=== PATIENT | female | born 1945 | race Caucasian/White ===

== ENCOUNTER 2018-10-16 12:26 | Inpatient (IN) | payer MEDICARE, OTHER ==
[~2018-10-16] VITALS: Ht 152.4 cm; Wt 68.1 kg
[2018-10-16] MEDS ORDERED: cefotetan 2gm/isosm dext IVPB 50 ML IV ONE (13:45)
[2018-10-16 14:00] VITALS: BP 136/65
[2018-10-16] MEDS ORDERED: CLON-528 PO (14:25)
[2018-10-16] MEDS ORDERED: DESV100T PO (14:25)
[2018-10-16] MEDS ORDERED: PREG225C PO (14:25)
[2018-10-16] MEDS ORDERED: QUET50TA22 PO (14:25)
[2018-10-16] MEDS ORDERED: DONE10TA7 PO (14:25)
[2018-10-16] MEDS ORDERED: QUET25TA34 PO (14:25)
[2018-10-16] MEDS ORDERED: CARB1TAB23 PO (14:25)
[2018-10-16 14:44] LABS: BASOPHILS % (AUTO) 0.6 % (0-1); EOSINOPHILS # (AUTO) 0.1 X10'3 (0-0.9); EOSINOPHILS % (AUTO) 0.9 % (0-6); LYMPHOCYTES # (AUTO) 1.9 X10'3 (1.1-4.8); LYMPHOCYTES % (AUTO) 28.7 % (21-51); MEAN CORPUSCULAR HEMOGLOBIN 30.2 PG (27.0-31.0); MEAN CORPUSCULAR HGB CONC 33.3 g/dL (33.0-36.5); MEAN CORPUSCULAR VOLUME 90.5 FL (78-98); MEAN PLATELET VOLUME 9.9 FL (7.4-10.4); MONOCYTES # (AUTO) 0.5 X10'3 (0-0.9); MONOCYTES % (AUTO) 7.2 % (2-12); NEUTROPHILS # (AUTO) 4.3 X10'3 (1.8-7.7); NEUTROPHILS % (AUTO) 62.6 % (42-75); PRE OP HEMATOCRIT 42.1 % (35.0-45.0); PRE OP PLATELET COUNT 197 X10'3 (140-440); RED BLOOD COUNT 4.65 X10'6 (4.20-5.60); RED CELL DISTRIBUTION WIDTH 13.8 % (11.5-14.5)
[2018-10-16] MEDS ORDERED: PEG 3350/Na sulf,bicarb,Cl/KCl oral sol 4 liter bottle PO ONE (14:45)
[2018-10-16 14:51] LABS: PRE OP INR 1.1 INR; PRE OP PROTIME 10.8 SECONDS (9.0-12.0)
[2018-10-16 14:53] LABS: ALBUMIN 3.4 G/DL (3.4-5.0); ALBUMIN/GLOBULIN RATIO 0.9 (1.1-1.5); ALKALINE PHOSPHATASE 61 IU/L (46-116); BLOOD UREA NITROGEN 13 MG/DL (7-18); BUN/CREATININE RATIO 15.7 (6.6-38.0); CALCIUM 8.5 MG/DL (8.5-10.1); CHLORIDE 107 MMOL/L (99-107); CREATININE 0.83 MG/DL (0.40-0.90); PRE OP ANION GAP 6 (8-16); PRE OP AST 15 U/L (10-37); PRE OP BILIRUB, TOTAL 0.5 MG/DL (0.0-1.0); PRE OP GLUCOSE 94 MG/DL (70-104); PRE OP SODIUM 141 MMOL/L (135-145); TOTAL CARBON DIOXIDE 27.9 MMOL/L (24-32); TOTAL PROTEIN 7.4 G/DL (6.4-8.2); eGFR 67 ML/MIN
[2018-10-16 14:58] LABS: PRE OP POTASSIUM 3.3 MMOL/L (3.4-5.1)
[2018-10-16] MEDS: ondansetron/PF 4mg/2ml inj IV PRN (15:00)
[2018-10-16 15:23] LABS: PRE OP ALT 3 U/L (30-65)
[2018-10-16] MEDS ORDERED: magnesium 2GM in 50ml NS 50 ML IV PRN (15:55)
[2018-10-16] MEDS ORDERED: magnesium Cl slow-release 64mg tablet PO PRN ×2 (15:55)
[2018-10-16] MEDS ORDERED: potassium Cl 20 mEq SR tablet PO PRN ×3 (15:55)
[2018-10-16] MEDS ORDERED: ondansetron/PF 4mg/2ml inj IV PRN (15:55)
[2018-10-16] MEDS ORDERED: magnesium 4gm in 100ml NS 100 ML IV PRN (15:55)
[2018-10-16] MEDS ORDERED: potassium Cl 40MEQ/NS 500ml 500 ML IV PRN ×4 (15:55)
[2018-10-16] MEDS: potassium Cl 20 mEq SR tablet PO PRN ×2 (16:24→20:47)
[2018-10-16] MEDS: normal saline 1000ml 1,000 ML IV SCH (16:25)
[2018-10-16] MEDS ORDERED: QUEtiapine 25mg tablet PO PRN (16:55)
--- NOTE | 2018-10-16 17:02 | NUR ---
Spoke to Dr Solis he stated no need to place vogel now he will place during surgery. Also, Dr Solis would like us to continue with giving patient Golytle. Dr Calixto is aware and ok with this information
[2018-10-16] MEDS: carbidoba-levodopa 25-100mg tablet PO SCH ×2 (17:09→20:50)
--- NOTE | 2018-10-16 18:43 | NUR ---
Problems reprioritized. Patient report given, questions answered & plan of care reviewed with Pat RN.
[2018-10-16 19:30] VITALS: BP 145/67
--- NOTE | 2018-10-16 19:30 | NUR ---
near completion of go-megan prep Addendum: 10/17/18 at 0217 by Bharti Olson RN Amended: Links added.
[2018-10-16] MEDS ORDERED: clonazePAM 0.5mg tablet PO SCH (20:00)
[2018-10-16] MEDS: venlafaxine 25mg tablet PO SCH (20:48)
[2018-10-16] MEDS: donepezil 5mg tablet PO SCH (20:49)
[2018-10-16] MEDS: pregabalin 75mg capsule PO SCH (20:49)
[2018-10-16] MEDS: QUEtiapine 25mg tablet PO SCH (21:00)
[2018-10-16] MEDS ORDERED: QUEtiapine 25mg tablet PO SCH ×2 (21:00)
[2018-10-16] MEDS: clonazePAM 0.5mg tablet PO PRN (21:38)
[2018-10-17] VITALS (17 sets, daily range): BP systolic 105–158; BP diastolic 53–84
[2018-10-17] MEDS: potassium Cl 20 mEq SR tablet PO PRN (00:55)
[2018-10-17 05:17] LABS: ALBUMIN 3.1 G/DL (3.4-5.0); ANION GAP 8 (8-16); BLOOD UREA NITROGEN 9 MG/DL (7-18); BUN/CREATININE RATIO 13.4 (6.6-38.0); CALCIUM 8.5 MG/DL (8.5-10.1); CHLORIDE 109 MMOL/L (99-107); CREATININE 0.67 MG/DL (0.40-0.90); GLUCOSE 86 MG/DL (70-104); MAGNESIUM 2.2 MG/DL (1.5-2.4); POTASSIUM 3.8 MMOL/L (3.5-5.1); SODIUM 143 MMOL/L (135-145); TOTAL CARBON DIOXIDE 26.3 MMOL/L (24-32); eGFR 86 ML/MIN
[2018-10-17 05:31] LABS: BASOPHILS # (AUTO) 0.1 X10'3 (0-0.2); BASOPHILS % (AUTO) 0.9 % (0-1); EOSINOPHILS # (AUTO) 0.1 X10'3 (0-0.9); EOSINOPHILS % (AUTO) 1.6 % (0-6); HEMATOCRIT 42.5 % (35.0-45.0); HEMOGLOBIN 14.1 g/dl (12.0-16.0); LYMPHOCYTES # (AUTO) 2.3 X10'3 (1.1-4.8); LYMPHOCYTES % (AUTO) 33.3 % (21-51); MEAN CORPUSCULAR HEMOGLOBIN 29.8 PG (27.0-31.0); MEAN CORPUSCULAR HGB CONC 33.2 g/dL (33.0-36.5); MEAN CORPUSCULAR VOLUME 89.9 FL (78-98); MEAN PLATELET VOLUME 11.6 FL (7.4-10.4); MONOCYTES # (AUTO) 0.5 X10'3 (0-0.9); MONOCYTES % (AUTO) 7.6 % (2-12); NEUTROPHILS # (AUTO) 3.9 X10'3 (1.8-7.7); NEUTROPHILS % (AUTO) 56.6 % (42-75); PLATELET COUNT 180 X10'3 (140-440); RED BLOOD COUNT 4.73 X10'6 (4.20-5.60); RED CELL DISTRIBUTION WIDTH 13.4 % (11.5-14.5); WHITE BLOOD COUNT 6.9 X10'3 (4.5-11.0)
[2018-10-17] MEDS ORDERED: cefotetan 2gm/isosm dext IVPB 50 ML IV ONE (06:00)
--- NOTE | 2018-10-17 06:40 | NUR ---
report given to LENA Fitzgerald
--- NOTE | 2018-10-17 06:54 | NUR ---
Patient in room [facility] 347. I have received report from Pat RN and had the opportunity to ask questions and assume patient care.
[2018-10-17] MEDS ORDERED: DESVENLAFAXINE SUCCINATE PO SCH (08:00)
[2018-10-17] MEDS: K and/or MAG REPLACEMENT MC SCH (08:00)
[2018-10-17] MEDS: venlafaxine 25mg tablet PO SCH ×2 (09:05→21:28)
[2018-10-17] MEDS: pregabalin 75mg capsule PO SCH ×2 (09:06→21:28)
[2018-10-17] MEDS: carbidoba-levodopa 25-100mg tablet PO SCH ×4 (09:06→21:00)
[2018-10-17] MEDS: normal saline 1000ml 1,000 ML IV SCH ×2 (09:07→21:25)
[2018-10-17] MEDS ORDERED: LIDOcaine 1% 30ml preserv. free vial ONE (14:46)
--- NOTE | 2018-10-17 15:48 | NUR ---
Called Report to Recovery all questions answered. They are aware of the DNR status and Dr Solis is aware stated he did not need to sign DNR form.
[2018-10-17] MEDS ORDERED: NORMAL SALINE IV SCH (16:00)
[2018-10-17] MEDS ORDERED: ADDVANTAGE IV SCH (16:00)
[2018-10-17] MEDS ORDERED: CEFOXITIN IV SCH (16:00)
[2018-10-17] MEDS ORDERED: sevoflurane 250ml liquid IH ONE (16:18)
[2018-10-17] MEDS ORDERED: neostigmine methylsulfate 1 MG/ML 10ml vial ONE (16:18)
[2018-10-17] MEDS ORDERED: dexamethasone sod phosphate 10mg/ml inj ONE (16:18)
[2018-10-17] MEDS ORDERED: glycopyrrolate 0.2mg/ml inj ONE (16:18)
[2018-10-17] MEDS ORDERED: midazolam 2 mg/2 ml injection ONE (16:22)
[2018-10-17] MEDS ORDERED: fentaNYL /PF 50mcg/ml 5ml ampule ONE (16:22)
[2018-10-17] MEDS ORDERED: LIDOcaine 2% (20mg/ml) 5ml vial ONE (16:23)
[2018-10-17] MEDS ORDERED: propofol inj 20 ML IV ONE (16:23)
[2018-10-17] MEDS ORDERED: ondansetron/PF 4mg/2ml inj ONE (16:31)
[2018-10-17] MEDS ORDERED: rocuronium 10mg/ml inj IV ONE (16:32)
[2018-10-17] MEDS: BUPIVAcaine/PF 2.5mg/ml (0.25%) 10ml vial ONE ×2 (16:57→19:30)
[2018-10-17] MEDS: ROPIVAcaine 0.5% (5mg/ml) 30ml vial ONE ×2 (16:58→19:31)
[2018-10-17] MEDS ORDERED: ringers solution, lacted 1,000 ML IV SCH (17:01)
[2018-10-17] MEDS ORDERED: proCHLORperazine 10 MG/2 ml inj IV PRN (17:05)
[2018-10-17] MEDS ORDERED: ondansetron/PF 4mg/2ml inj IV PRN (17:05)
[2018-10-17] MEDS ORDERED: meperidine/PF 25mg/ml syringe IV PRN ×3 (17:05)
[2018-10-17] MEDS ORDERED: morphine 4 MG/ML inj SYRINge IV PRN ×2 (17:05)
--- NOTE | 2018-10-17 18:39 | NUR ---
Problems reprioritized. Patient report given, questions answered & plan of care reviewed with Eva PAREDES, patient still in surgery .
[2018-10-17] MEDS ORDERED: naloxone 0.4 mg/ml inj IV PRN (19:20)
[2018-10-17] MEDS ORDERED: CADD PCA waste documentation MC PRN (19:20)
--- NOTE | 2018-10-17 19:35 | NUR ---
PReceived from OR via MEDICAL BED, accompanied by Anesthesiologist DR. MATTA and report given by Anesthesiolgist. PT RESTFUL, O2 VIA MASK AT 10L. WOUND VAC TO ABD CDI, GOOD SEAL AND SUCTION. FC NOTED WITH CLEAR YELLOW URINE. SCD IN PLACE. 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 VALDEZ WITH GOOD CSM
[2018-10-17] MEDS: HYDROmorphone/NS 1 mg/ml CADD 50 ML IV SCH ×3 (19:45→23:00)
--- NOTE | 2018-10-17 20:15 | NUR ---
Received report from recovery nurse Pat PAREDES. Will assume patient care.
--- NOTE | 2018-10-17 20:25 | NUR ---
Report called to receiving nurse VERNELL PAREDES. Transferred via SURGICAL BED TO ROOM 347B, NO Belongings BROUGHT TO THE RR. FAMILY NOTIFIED PT TAKEN TO ROOM. Special Issues communicated to receiving nurse. VSS ON 2L NC. PAIN BETTER WITH MEDICATION
--- NOTE | 2018-10-17 20:40 | NUR ---
Patient arrived to floor with family at bedside. Patient awake and states she is in a lot of pain 10/10. Patient and family educated about Dilaudid Cadd pump for pain, states understanding. Patient has a FC in place draining clear yellow urine. WV to midline at 125mmhg low continuous. No output to canister. VSS. Continue with care.
[2018-10-17] MEDS: donepezil 5mg tablet PO SCH (21:00)
[2018-10-17] MEDS: QUEtiapine 25mg tablet PO SCH (21:00)
[2018-10-17] MEDS: cefotetan 1gm/50ml IVPB 50 ML IV SCH (21:25)
--- NOTE | 2018-10-17 21:30 | NUR ---
Patient missed her 1600 Cefotetan dose. Pharmacist Adam called states ok to give the dose now and to proceed with the midnight dose.
--- NOTE | 2018-10-17 22:00 | NUR ---
All night medications held tonight. Patient states she is ok with all of it being held. BS very hypoactive. No gas yet. Patient states her pain is much better rating it 2/10. CADD pump in reach.
[2018-10-18] VITALS: BP 118/50
[2018-10-18 00:30] VITALS: BP 107/46
[2018-10-18] MEDS: HYDROmorphone/NS 1 mg/ml CADD 50 ML IV SCH ×5 (01:00→09:00)
[2018-10-18] MEDS: cefotetan 1gm/50ml IVPB 50 ML IV SCH ×3 (01:24→16:38)
[2018-10-18 04:00] VITALS: BP 119/59
[2018-10-18 05:18] LABS: BASOPHILS % (AUTO) 0.1 % (0-1); EOSINOPHILS % (AUTO) 0 % (0-6); HEMATOCRIT 37.8 % (35.0-45.0); HEMOGLOBIN 12.6 g/dl (12.0-16.0); LYMPHOCYTES # (AUTO) 1.1 X10'3 (1.1-4.8); MEAN CORPUSCULAR HEMOGLOBIN 29.7 PG (27.0-31.0); MEAN CORPUSCULAR HGB CONC 33.2 g/dL (33.0-36.5); MEAN CORPUSCULAR VOLUME 89.3 FL (78-98); MONOCYTES % (AUTO) 5.7 % (2-12); NEUTROPHILS # (AUTO) 15.7 X10'3 (1.8-7.7); NEUTROPHILS % (AUTO) 88.2 % (42-75); PLATELET COUNT 151 X10'3 (140-440); RED BLOOD COUNT 4.24 X10'6 (4.20-5.60); RED CELL DISTRIBUTION WIDTH 14.2 % (11.5-14.5); WHITE BLOOD COUNT 17.8 X10'3 (4.5-11.0)
[2018-10-18 05:30] LABS: ALBUMIN 2.7 G/DL (3.4-5.0); ANION GAP 9 (8-16); BLOOD UREA NITROGEN 9 MG/DL (7-18); BUN/CREATININE RATIO 9.3 (6.6-38.0); CALCIUM 7.9 MG/DL (8.5-10.1); CHLORIDE 106 MMOL/L (99-107); CREATININE 0.97 MG/DL (0.40-0.90); GLUCOSE 141 MG/DL (70-104); MAGNESIUM 1.8 MG/DL (1.5-2.4); POTASSIUM 4.2 MMOL/L (3.5-5.1); SODIUM 140 MMOL/L (135-145); TOTAL CARBON DIOXIDE 24.9 MMOL/L (24-32); eGFR 56 ML/MIN
[2018-10-18] MEDS ORDERED: diphenhydrAMINE 50 mg/ml inj IV PRN (06:00)
[2018-10-18 07:00] VITALS: BP 121/62
[2018-10-18 07:05] LABS: PLATELET ESTIMATE NORMAL; TOTAL CELLS COUNTED 100
[2018-10-18] MEDS: K and/or MAG REPLACEMENT MC SCH (08:00)
[2018-10-18] MEDS: pregabalin 75mg capsule PO SCH ×2 (08:01→20:46)
[2018-10-18] MEDS: venlafaxine 25mg tablet PO SCH ×2 (08:01→20:46)
[2018-10-18] MEDS: clonazePAM 0.5mg tablet PO PRN (08:01)
[2018-10-18] MEDS: carbidoba-levodopa 25-100mg tablet PO SCH ×4 (08:01→20:46)
[2018-10-18 11:00] VITALS: BP 111/61
[2018-10-18] MEDS ORDERED: morphine/NS 5 mg/ml CADD 50 ML IV SCH (11:19)
[2018-10-18] MEDS ORDERED: naloxone 0.4 mg/ml inj IV PRN (11:20)
[2018-10-18] MEDS ORDERED: diphenhydrAMINE 50 mg/ml inj IV ONE (11:25)
[2018-10-18] MEDS: CADD PCA waste documentation MC PRN (14:08)
[2018-10-18] MEDS: morphine/NS 5 mg/ml CADD 50 ML IV SCH ×6 (14:31→23:00)
[2018-10-18] MEDS: normal saline 1000ml 1,000 ML IV SCH (16:31)
[2018-10-18 18:00] VITALS: BP 128/68
--- NOTE | 2018-10-18 18:32 | NUR ---
Patient in room [facility] 347. I have received report from LENA Nelson and had the opportunity to ask questions and assume patient care.
[2018-10-18] MEDS: docusate sod 100mg capsule PO SCH (20:44)
[2018-10-18] MEDS: QUEtiapine 25mg tablet PO SCH (20:46)
[2018-10-18] MEDS: donepezil 5mg tablet PO SCH (20:47)
[2018-10-19] VITALS: BP 101/54
[2018-10-19] MEDS: cefotetan 1gm/50ml IVPB 50 ML IV SCH ×3 (00:04→17:55)
[2018-10-19] MEDS: morphine/NS 5 mg/ml CADD 50 ML IV SCH ×3 (01:00→05:00)
[2018-10-19] MEDS: ondansetron/PF 4mg/2ml inj IV PRN (04:42)
--- NOTE | 2018-10-19 06:30 | NUR ---
Problems reprioritized. Patient report given, questions answered & plan of care reviewed with LENA Nelson.
[2018-10-19 07:00] VITALS: BP 114/63
[2018-10-19] MEDS: K and/or MAG REPLACEMENT MC SCH (08:00)
[2018-10-19] MEDS: pregabalin 75mg capsule PO SCH ×2 (08:00→20:06)
[2018-10-19] MEDS ORDERED: normal saline 250ml IV soln 250 ML IV ONE ×2 (08:35→09:00)
[2018-10-19] MEDS: docusate sod 100mg capsule PO SCH ×2 (08:50→20:05)
[2018-10-19] MEDS: carbidoba-levodopa 25-100mg tablet PO SCH ×4 (08:50→20:06)
[2018-10-19] MEDS: venlafaxine 25mg tablet PO SCH ×2 (08:51→20:06)
[2018-10-19 09:16] LABS: BASOPHILS % (AUTO) 0.3 % (0-1); EOSINOPHILS % (AUTO) 0 % (0-6); HEMATOCRIT 32.9 % (35.0-45.0); HEMOGLOBIN 10.9 g/dl (12.0-16.0); LYMPHOCYTES # (AUTO) 1.1 X10'3 (1.1-4.8); LYMPHOCYTES % (AUTO) 8.5 % (21-51); MEAN CORPUSCULAR HEMOGLOBIN 29.5 PG (27.0-31.0); MEAN CORPUSCULAR HGB CONC 33.1 g/dL (33.0-36.5); MEAN CORPUSCULAR VOLUME 89.2 FL (78-98); MEAN PLATELET VOLUME 10.5 FL (7.4-10.4); MONOCYTES # (AUTO) 1.3 X10'3 (0-0.9); MONOCYTES % (AUTO) 10.1 % (2-12); NEUTROPHILS # (AUTO) 10.1 X10'3 (1.8-7.7); NEUTROPHILS % (AUTO) 81.1 % (42-75); PLATELET COUNT 149 X10'3 (140-440); RED BLOOD COUNT 3.69 X10'6 (4.20-5.60); RED CELL DISTRIBUTION WIDTH 14.3 % (11.5-14.5); WHITE BLOOD COUNT 12.4 X10'3 (4.5-11.0)
[2018-10-19 09:25] LABS: ALBUMIN 2.2 G/DL (3.4-5.0); ANION GAP 7 (8-16); BLOOD UREA NITROGEN 16 MG/DL (7-18); CALCIUM 7.6 MG/DL (8.5-10.1); CHLORIDE 105 MMOL/L (99-107); CREATININE 1.07 MG/DL (0.40-0.90); GLUCOSE 150 MG/DL (70-104); MAGNESIUM 1.8 MG/DL (1.5-2.4); POTASSIUM 3.8 MMOL/L (3.5-5.1); SODIUM 137 MMOL/L (135-145); TOTAL CARBON DIOXIDE 24.7 MMOL/L (24-32); eGFR 50 ML/MIN
[2018-10-19] MEDS: normal saline 1000ml 1,000 ML IV SCH ×2 (09:37→13:54)
[2018-10-19 09:42] LABS: LARGE PLATELETS FEW; PLATELET ESTIMATE NORMAL
[2018-10-19] MEDS: CADD PCA waste documentation MC PRN (10:06)
[2018-10-19 12:17] VITALS: BP 99/53
[2018-10-19] MEDS ORDERED: Potassium Cl inj 10 MEQ in normal saline 1000ml 1,000 ML IV SCH (15:53)
[2018-10-19 18:00] VITALS: BP 105/56
--- NOTE | 2018-10-19 18:15 | NUR ---
Patient in room [facility] 347. I have received report from LENA Nelson and had the opportunity to ask questions and assume patient care.
[2018-10-19] MEDS: heparin, porcine 5000 units/ml vial SQ SCH (20:05)
[2018-10-19] MEDS: QUEtiapine 25mg tablet PO SCH (20:05)
[2018-10-19] MEDS: donepezil 5mg tablet PO SCH (20:06)
[2018-10-19] MEDS: HYDROcodone/acetaminophen 10/325mg tab PO PRN (20:07)
[2018-10-19] MEDS: potassium CL 20mEq in D5-1/2NS 1,000 ML IV SCH (20:18)
[2018-10-20] VITALS: BP 116/59
[2018-10-20] MEDS: cefotetan 1gm/50ml IVPB 50 ML IV SCH ×2 (00:10→07:57)
[2018-10-20] MEDS: potassium CL 20mEq in D5-1/2NS 1,000 ML IV SCH ×2 (05:10→14:22)
[2018-10-20] MEDS: HYDROcodone/acetaminophen 10/325mg tab PO PRN ×3 (05:10→14:18)
[2018-10-20 05:38] LABS: ALBUMIN 1.8 G/DL (3.4-5.0); ANION GAP 6 (8-16); BLOOD UREA NITROGEN 8 MG/DL (7-18); BUN/CREATININE RATIO 9.6 (6.6-38.0); CALCIUM 7.8 MG/DL (8.5-10.1); CHLORIDE 108 MMOL/L (99-107); CREATININE 0.83 MG/DL (0.40-0.90); GLUCOSE 103 MG/DL (70-104); MAGNESIUM 1.8 MG/DL (1.5-2.4); POTASSIUM 3.8 MMOL/L (3.5-5.1); SODIUM 141 MMOL/L (135-145); TOTAL CARBON DIOXIDE 27.4 MMOL/L (24-32); eGFR 67 ML/MIN
[2018-10-20 05:46] LABS: BASOPHILS % (AUTO) 0.5 % (0-1); EOSINOPHILS % (AUTO) 0.3 % (0-6); HEMOGLOBIN 10.3 g/dl (12.0-16.0); LYMPHOCYTES # (AUTO) 1.2 X10'3 (1.1-4.8); LYMPHOCYTES % (AUTO) 13.5 % (21-51); MEAN CORPUSCULAR HEMOGLOBIN 30.1 PG (27.0-31.0); MEAN CORPUSCULAR HGB CONC 33.1 g/dL (33.0-36.5); MEAN CORPUSCULAR VOLUME 90.8 FL (78-98); MEAN PLATELET VOLUME 10.5 FL (7.4-10.4); MONOCYTES # (AUTO) 0.8 X10'3 (0-0.9); MONOCYTES % (AUTO) 9.2 % (2-12); NEUTROPHILS % (AUTO) 76.5 % (42-75); PLATELET COUNT 118 X10'3 (140-440); RED BLOOD COUNT 3.41 X10'6 (4.20-5.60); RED CELL DISTRIBUTION WIDTH 14.5 % (11.5-14.5); WHITE BLOOD COUNT 9.2 X10'3 (4.5-11.0)
--- NOTE | 2018-10-20 06:00 | NUR ---
RECEIVED REPORT FROM BORIS PAREDES
--- NOTE | 2018-10-20 06:18 | NUR ---
Problems reprioritized. Patient report given, questions answered & plan of care reviewed with LENA Mota.
[2018-10-20 07:00] VITALS: BP 102/53
[2018-10-20] MEDS: pregabalin 75mg capsule PO SCH ×2 (07:55→21:15)
[2018-10-20] MEDS: docusate sod 100mg capsule PO SCH (07:55)
[2018-10-20] MEDS: venlafaxine 25mg tablet PO SCH ×2 (07:56→21:14)
[2018-10-20] MEDS: carbidoba-levodopa 25-100mg tablet PO SCH ×4 (07:56→21:14)
[2018-10-20] MEDS: heparin, porcine 5000 units/ml vial SQ SCH ×2 (07:57→21:13)
[2018-10-20] MEDS: K and/or MAG REPLACEMENT MC SCH (08:00)
[2018-10-20 11:00] VITALS: BP 96/50
--- NOTE | 2018-10-20 14:11 | NUR ---
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 Pt previously on clear liquid diet with documented PO intake 50%, pt currently NPO for OR. [facility] 10/17. Will continue to follow and monitor need for ONS post-op and provide protein education once appropriate. Recommendations: 1) Advance to heart healthy diet as medically indicated 2) Monitor need for ONS with diet advancement post-op 3) Protein education prior to d/c 4) Bowel care as needed 5) Wt per rx Addendum: 10/20/18 at [address] Amended: Links added.
[2018-10-20] MEDS ORDERED: oxyCODONE/APAP 5-325mg tablet PO PRN (15:20)
[2018-10-20] MEDS ORDERED: methylnaltrexone br 12mg/0.6ml inj***SubQ only SQ ONE (15:20)
[2018-10-20] MEDS: oxyCODONE/APAP 5-325mg tablet PO PRN ×2 (16:30→21:14)
[2018-10-20 18:00] VITALS: BP 102/52
--- NOTE | 2018-10-20 18:04 | NUR ---
Problems reprioritized. Patient report given, questions answered & plan of care reviewed with BORIS PAREDES.
--- NOTE | 2018-10-20 18:05 | NUR ---
Patient in room [facility] 347. I have received report from LENA Mota and had the opportunity to ask questions and assume patient care.
[2018-10-20] MEDS: lactobacillus rhamnosus 10,000 MMU CELLS/CAPSULE PO SCH (21:11)
[2018-10-20] MEDS: QUEtiapine 25mg tablet PO SCH (21:13)
[2018-10-20] MEDS: donepezil 5mg tablet PO SCH (21:15)
[2018-10-21] VITALS: BP 114/55
[2018-10-21] MEDS: oxyCODONE/APAP 5-325mg tablet PO PRN ×2 (05:08→13:44)
[2018-10-21] MEDS: potassium CL 20mEq in D5-1/2NS 1,000 ML IV SCH (05:10)
--- NOTE | 2018-10-21 06:14 | NUR ---
Problems reprioritized. Patient report given, questions answered & plan of care reviewed with LENA Mota.
--- NOTE | 2018-10-21 06:15 | NUR ---
Patient in room [facility] 347. I have received report from BORIS PAREDES and had the opportunity to ask questions and assume patient care.
[2018-10-21 07:00] VITALS: BP 101/47
[2018-10-21 07:32] LABS: ANION GAP 6 (8-16); BLOOD UREA NITROGEN 5 MG/DL (7-18); BUN/CREATININE RATIO 6.8 (6.6-38.0); CHLORIDE 106 MMOL/L (99-107); CREATININE 0.74 MG/DL (0.40-0.90); GLUCOSE 91 MG/DL (70-104); MAGNESIUM 1.9 MG/DL (1.5-2.4); POTASSIUM 3.5 MMOL/L (3.5-5.1); SODIUM 141 MMOL/L (135-145); TOTAL CARBON DIOXIDE 28.9 MMOL/L (24-32); eGFR 77 ML/MIN
[2018-10-21] MEDS: K and/or MAG REPLACEMENT MC SCH (07:36)
[2018-10-21] MEDS: carbidoba-levodopa 25-100mg tablet PO SCH ×2 (07:42→13:37)
[2018-10-21] MEDS: lactobacillus rhamnosus 10,000 MMU CELLS/CAPSULE PO SCH (07:44)
[2018-10-21] MEDS: venlafaxine 25mg tablet PO SCH (07:44)
[2018-10-21] MEDS: pregabalin 75mg capsule PO SCH (07:44)
[2018-10-21] MEDS: heparin, porcine 5000 units/ml vial SQ SCH (07:45)
[2018-10-21 11:00] VITALS: BP 98/43
[2018-10-21 11:22] LABS: BASOPHILS % (AUTO) 0.6 % (0-1); EOSINOPHILS # (AUTO) 0.2 X10'3 (0-0.9); EOSINOPHILS % (AUTO) 2.4 % (0-6); HEMATOCRIT 31.1 % (35.0-45.0); HEMOGLOBIN 10.6 g/dl (12.0-16.0); LYMPHOCYTES # (AUTO) 0.9 X10'3 (1.1-4.8); LYMPHOCYTES % (AUTO) 11.8 % (21-51); MEAN CORPUSCULAR HEMOGLOBIN 30.2 PG (27.0-31.0); MEAN PLATELET VOLUME 10.8 FL (7.4-10.4); MONOCYTES # (AUTO) 0.9 X10'3 (0-0.9); MONOCYTES % (AUTO) 12.3 % (2-12); NEUTROPHILS # (AUTO) 5.5 X10'3 (1.8-7.7); NEUTROPHILS % (AUTO) 72.9 % (42-75); PLATELET COUNT 158 X10'3 (140-440); RED BLOOD COUNT 3.49 X10'6 (4.20-5.60); RED CELL DISTRIBUTION WIDTH 14.2 % (11.5-14.5); WHITE BLOOD COUNT 7.6 X10'3 (4.5-11.0)
[2018-10-21 11:40] LABS: LARGE PLATELETS FEW; PLATELET ESTIMATE NORMAL
--- NOTE | 2018-10-21 13:37 | NUR ---
pt's daughter called, called her back and left a message
--- NOTE | 2018-10-21 15:10 | NUR ---
dylan cargo picked up pt.
== END 2018-10-21 15:01 | DRG 331 ==
LOC: SUR 3N 13:05 → PACU 10-17 15:55 → SUR 3N 10-17 20:06
PROVIDERS: ADMIT Surgery; ATTEND Internal Medicine
PROC: 0DBN0ZZ Excision of Sigmoid Colon, Open Approach (ICD-10-PCS; principal; 2018-10-17 16:18)
DX: N82.3 Fistula of vagina to large intestine (principal); I10 Essential (primary) hypertension; G62.9 Polyneuropathy, unspecified; G20 Parkinson's disease; F32.9 Major depressive disorder, single episode, unspecified; I95.9 Hypotension, unspecified; F41.9 Anxiety disorder, unspecified; Z66 Do not resuscitate; Z90.710 Acquired absence of both cervix and uterus; Z88.8 Allergy status to other drugs, medicaments and biological substances; Z79.899 Other long term (current) drug therapy
CPT/HCPCS: 36415; 71045; 80048; 80053; 82378; 83735; 85025; 85610; 85730; 87070; 88307; 93005; 97110; 97116; 97162; A7000; G0378; J1100; J1170; J1200; J1644; J2001; J2175; J2250; J2270; J2405; J2704; J2710; J2795; J3010; J3480; J3490; J7030; J7120

== ENCOUNTER 2018-11-16 19:14 | Inpatient (IN) | payer MEDICARE, OTHER | END 2018-11-25 17:00 | disposition home or self-care (01) | LOC: SUR 3N 11-22 12:25 → ER 19:14 → SUR 3N 11-18 14:29 → ED HOLD 22:13 | DX: K91.89 Other postprocedural complications and disorders of digestive system (principal); N39.0 Urinary tract infection, site not specified; R10.9 Unspecified abdominal pain; F41.9 Anxiety disorder, unspecified; E87.6 Hypokalemia ==

== ENCOUNTER 2019-03-16 04:15 | Emergency (ER) | payer MEDICARE, OTHER ==
[~2019-03-16] VITALS: Ht 154.9 cm; Wt 71.8 kg
[~2019-03-16 04:15] MED LIST: CARB1TAB23 PO; CEPH250T PO; CLON-528 PO; DONE10TA7 PO; PREG225C PO; QUET25TA34 PO; QUET50TA22 PO
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
[2019-03-16] MEDS ORDERED: AMIT-189 PO (07:26)
--- NOTE | 2019-03-16 07:27 | NUR ---
MERLE (PT'S GRANDSON) : [phone]. HE IS AWARE THE PT IS GOING TO BE TRANSFERED TO [facility] AT 9AM
--- NOTE | 2019-03-16 07:40 | NUR ---
REPORT CALLED TO YEISON RN AT [facility]. WAITING ON TRANSPORT (ETA 9AM)
[2019-03-16 08:51] VITALS: BP 128/83
--- NOTE | 2019-03-16 09:07 | NUR ---
STILL WAITING ON TRANSPORT
--- NOTE | 2019-03-16 09:20 | NUR ---
CALLED [facility] FOR UPDATE ON TRANSPORT, DUE TO HIGH CALL LEVELS UNABLE TO GIVE AN ETA
== END 2019-03-16 09:40 | disposition short-term general hospital (02) ==
LOC: ER 04:16
DX: S06.6X0A Traumatic subarachnoid hemorrhage without loss of consciousness, initial encounter (principal); F10.99 Alcohol use, unspecified with unspecified alcohol-induced disorder; Z90.49 Acquired absence of other specified parts of digestive tract; Z88.8 Allergy status to other drugs, medicaments and biological substances; Z79.899 Other long term (current) drug therapy; Y04.8XXA Assault by other bodily force, initial encounter; Y93.89 Activity, other specified; Y92.89 Other specified places as the place of occurrence of the external cause; Y99.8 Other external cause status; Y90.9 Presence of alcohol in blood, level not specified
CPT/HCPCS: 70450; 72125; 99285